=== PATIENT | male | born 1960 | race Caucasian/White ===

== ENCOUNTER 2017-04-29 18:09 | Emergency (ER) | payer MEDICAID ==
[~2017-04-29] VITALS: Ht 167.6 cm; Wt 81.6 kg
[2017-04-29 18:32] VITALS: BP_SYST 145
--- NOTE | 2017-04-29 18:40 | NUR ---
Patient to ER bed 2 to gown for evaluation. Side rails up. Report given to Sarthak ROTHMAN.
--- NOTE | 2017-04-29 18:43 | NUR ---
ER Dr. Jarvis at bedside examining patient.
--- NOTE | 2017-04-29 18:45 | NUR ---
Pt presents to ER c/o epigastric pain 12/31 that began this morning. Pt states that he had 4 vomiting episodes today and remains nauseous, last BM yesterday. Pt denies any significant medical history. Pt is AOX4, respirations even and unlabored, NKDA.
--- NOTE | 2017-04-29 18:48 | NUR ---
Laboratory at bedside for blood draw.
[2017-04-29 19:01] LABS: BASOPHILS # (AUTO) 0.1 K/uL (0.0-0.2); EOSINOPHILS % (AUTO) 0.1 % (0.0-4.0); HEMATOCRIT 48.2 % (36-54); HEMOGLOBIN 15.7 g/dL (14.0-18.0); LYMPHOCYTES # (AUTO) 0.8 K/uL (1.0-5.5); LYMPHOCYTES % (AUTO) 7.7 % (20.5-51.5); MEAN CORPUSCULAR HEMOGLOBIN 28 pg (27-31); MEAN CORPUSCULAR HGB CONC 33 % (32-36); MEAN CORPUSCULAR VOLUME 85 fL (79.0-98.0); MONOCYTES # (AUTO) 0.3 K/uL (0.0-1.0); MONOCYTES % (AUTO) 3.1 % (1.7-9.3); NEUTROPHILS # (AUTO) 9.4 K/uL (1.8-7.7); NEUTROPHILS % (AUTO) 88.1 % (40.0-70.0); PLATELET COUNT (AUTO) 201 K/uL (130-430); RED BLOOD CELL COUNT(AUTO) 5.68 MIL/uL (4.2-6.2); RED CELL DISTRIBUTION WIDTH 12.5 % (9.0-15.0); WHITE BLOOD COUNT (AUTO) 10.6 K/uL (4.8-10.8)
--- NOTE | 2017-04-29 19:06 | NUR ---
Radiology at bedside for ultrasound.
[2017-04-29 19:11] LABS: CALCIUM 9.9 mg/dL (8.4-11.0); CREATININE 1.67 mg/dL (0.55-1.30); POTASSIUM 4.6 mmol/L (3.5-5.1)
[2017-04-29 19:14] LABS: PROTHROMBIN TIME 10.4 SECS (9.5-12.5)
[2017-04-29 19:17] LABS: ALBUMIN 3.7 g/dL (3.4-4.8); TOTAL BILIRUBIN 0.7 mg/dL (0.0-1.0)
[2017-04-29] MEDS ORDERED: ONDANSETRON 4 MG ODT TAB PO ONE (19:45)
[2017-04-29] MEDS ORDERED: MAG HYDROX/AL HYDROX/SIMETH 30 ML, BELLADONNA ALKALOIDS/PHENOBARB 10 ML, LIDOCAINE VISC... PO ONE ×3 (19:45)
[2017-04-29 19:54] VITALS: BP_SYST 137
--- NOTE | 2017-04-29 19:54 | NUR ---
Patient given written and verbal discharge instructions and verbalizes understanding. ER MD Jarvis discussed with patient the results and treatment provided. Patient in stable condition. ID arm band removed. Rx of Zofran, Prilosec, [place] given. Patient educated on pain management and to follow up with PMD. Pain Scale 0. Opportunity for questions provided and answered.
== END 2017-04-29 19:54 | disposition home or self-care (01) ==
LOC: SED 18:09
DX: R10.13 Epigastric pain (principal)
CPT/HCPCS: 36415; 76700; 80053; 82150; 83690; 85025; 85610; 85730; 93005; 99285; J2001; Q0162

== ENCOUNTER 2021-07-17 07:38 | Day surgery (SDC) | payer MEDICAID ==
[~2021-07-17] VITALS: Ht 167.6 cm; Wt 54.4 kg
[2021-07-17] MEDS ORDERED: MEPERIDINE 100 MG INJ. 100 MG/ML VIAL ONE (08:52)
[2021-07-17] MEDS ORDERED: MIDAZOLAM HCL 5 MG/5 ML VIAL ONE (08:52)
[2021-07-17 12:00] VITALS: BP_SYST 125
== END 2021-07-17 10:30 | disposition home or self-care (01) ==
LOC: SMU 07:38 → SDS 07:38
PROVIDERS: ATTEND Internal Medicine Gastroenterology
DX: R10.13 Epigastric pain (principal); K29.50 Unspecified chronic gastritis without bleeding; R11.10 Vomiting, unspecified; Z79.899 Other long term (current) drug therapy; Z20.822 Contact with and (suspected) exposure to COVID-19
CPT/HCPCS: 36415; 43239; 43249; 87426; 88305; 88312; 88313; 99152; G0378; J2175; J2250

== ENCOUNTER 2021-09-23 12:44 | Inpatient (IN) | payer MEDICAID ==
[~2021-09-23] VITALS: Ht 167.6 cm; Wt 63.5 kg
--- NOTE | 2021-09-23 13:00 | NUR ---
ERMD AT BEDSIDE
[2021-09-23 13:03] VITALS: BP_SYST 136
[2021-09-23] MEDS ORDERED: NACL 0.9% 1,000 ML IV ONE (13:15)
[2021-09-23] MEDS ORDERED: dilTIAZem HCL IVP 5 MG/ML VIAL IVP ONE ×2 (13:15→13:45)
[2021-09-23] MEDS ORDERED: methylPREDNISolone SOD SUCC/PF 62.5 MG/ML VIAL IVP ONE (13:15)
[2021-09-23] MEDS ORDERED: EPINEPHrine HCL 1 MG/ML VIAL IM ONE (13:15)
[2021-09-23 13:32] LABS: BASOPHILS % (AUTO) 0.2 % (0.0-2.0); EOSINOPHILS % (AUTO) 0.3 % (0.0-4.0); HEMATOCRIT 50.1 % (36-54); HEMOGLOBIN 16.5 g/dL (14.0-18.0); LYMPHOCYTES # (AUTO) 1.5 K/uL (1.0-5.5); LYMPHOCYTES % (AUTO) 11.9 % (20.5-51.5); MEAN CORPUSCULAR HEMOGLOBIN 29 pg (27-31); MEAN CORPUSCULAR HGB CONC 33 % (32-36); MEAN CORPUSCULAR VOLUME 89 fL (79.0-98.0); MONOCYTES # (AUTO) 0.7 K/uL (0.0-1.0); MONOCYTES % (AUTO) 5.3 % (1.7-9.3); NEUTROPHILS # (AUTO) 10.7 K/uL (1.8-7.7); NEUTROPHILS % (AUTO) 82.3 % (40.0-70.0); PLATELET COUNT (AUTO) 224 K/uL (130-430); RED BLOOD CELL COUNT(AUTO) 5.65 MIL/uL (4.2-6.2); RED CELL DISTRIBUTION WIDTH 13.5 % (9.0-15.0)
[2021-09-23 13:46] LABS: ANION GAP 11 (5-15); CALCIUM 7.4 mg/dL (8.4-11.0); CHLORIDE 105 mmol/L (98-107); CREATININE 1.72 mg/dL (0.55-1.30); GLUCOSE 201 mg/dL (70-99); POTASSIUM 3.8 mmol/L (3.5-5.1); SODIUM SERUM 140 mmol/L (136-145); UREA NITROGEN, BLOOD 22 mg/dL (8-21)
[2021-09-23 13:47] LABS: GFR AFRICAN AMERICAN 53 mL/min (>90)
[2021-09-23 13:52] LABS: ALANINE AMINOTRANSFERASE 15 U/L (12-78); ALBUMIN 3.2 g/dL (3.4-4.8); ASPARTATE AMINOTRANSFERASE 22 U/L (10-37); TOTAL BILIRUBIN 0.6 mg/dL (0.0-1.0)
[2021-09-23] MEDS ORDERED: LORazepam 2 MG/ML VIAL IVP ONE (14:30)
[2021-09-23] MEDS ORDERED: PRED20TA PO (15:09)
[2021-09-23] MEDS ORDERED: FAMO40TA71 PO (15:09)
[2021-09-23] MEDS ORDERED: DIPH25CA83 PO (15:09)
[2021-09-23] MEDS ORDERED: DOCUSATE SODIUM 100 MG/10 ML UDC PO PRN (15:15)
[2021-09-23] MEDS ORDERED: guaiFENesin/DEXTROMETHORPHAN 10 ML UDC PO PRN (15:15)
[2021-09-23] MEDS ORDERED: NACL 0.9% 1,000 ML IV SCH (15:15)
[2021-09-23] MEDS ORDERED: HYDROcodone/ACETAMIN 7.5-325 MG TAB PO PRN (15:15)
[2021-09-23] MEDS ORDERED: ONDANSETRON HCL 4 MG/2 ML VIAL IVP PRN (15:15)
[2021-09-23] MEDS ORDERED: ZOLPIDEM TARTRATE 5 MG TABLET PO PRN (15:15)
[2021-09-23] MEDS ORDERED: MORPHINE 2 MG/ML INJ. SYRINGE IVP PRN (15:15)
[2021-09-23] MEDS ORDERED: FAMOTIDINE 20 MG TABLET PO ONE (15:15)
[2021-09-23] MEDS ORDERED: ACETAMINOPHEN 500 MG TABLET PO PRN (15:15)
--- NOTE | 2021-09-23 15:22 | NUR ---
A/OX4 VSS 101/70 HR 99, RR 20, 100% VERBALIZED UNDERSTANDING OF DC INSTRUCTIONS, ALL QUESTIONS ANSWERED
--- NOTE | 2021-09-23 15:23 | NUR ---
Patient given written and verbal discharge instructions and verbalizes understanding. ER MD discussed with patient the results and treatment provided. Patient in stable condition. ID arm band removed. IV catheter removed intact and dressing applied, no active bleeding. Rx of [] given. Patient educated on pain management and to follow up with PMD. Pain Scale []. Opportunity for questions provided and answered. Medication side effect fact sheet provided. Patient does not wish to proceed with medical care recommended by . Patient given information related to possible complications, up to and including , which could occur as a result of leaving hospital at this time. Patient verbalizes understanding of risks involved leaving against medical advice. Patient has signed AMA form.
[2021-09-23 15:24] LABS: INR 1.4 (0.80-1.20); PROTHROMBIN TIME 13.6 SECS (9.5-12.5)
[2021-09-23] MEDS ORDERED: cefTRIAXone 1 GM in D5W 50 ML IV SCH (16:00)
[2021-09-23 16:16] LABS: FREE T4 (FREE THYROXINE) 0.9 ng/dl (0.8-1.5); PHOSPHORUS 3.9 mg/dL (2.7-4.5); THYROID STIMULATING HORMONE 2.5 uIu/mL (0.36-3.74)
[2021-09-24] MEDS ORDERED: POTASSIUM CHLORIDE 20 MEQ TAB.PRT.SR PO PRN (09:00)
[2021-09-24] MEDS ORDERED: PANTOPRAZOLE SODIUM 40 MG TAB PO SCH (09:00)
== END 2021-09-23 15:23 | disposition left against medical advice (07) | DRG 201 ==
LOC: SED 12:44 → STU 15:02
PROVIDERS: ADMIT Family Medicine; ATTEND Family Medicine
DX: I48.91 Unspecified atrial fibrillation (principal); Z53.29 Procedure and treatment not carried out because of patient's decision for other reasons; Z79.01 Long term (current) use of anticoagulants
CPT/HCPCS: 36415; 71045; 80053; 80061; 82150; 83036; 83690; 83735; 83880; 84100; 84439; 84443; 84484; 85025; 85610-TC; 85730-TC; 93005; 96372; 96374; 96375; 99285; G0378; G0482; J0171; J0696; J2930; J3490; J7030; J7060

== ENCOUNTER 2022-08-29 08:22 | Day surgery (SDC) | payer MEDICAID ==
[~2022-08-29] VITALS: Ht 167.6 cm; Wt 52.4 kg
[~2022-08-29 08:22] MED LIST: DIPH25CA83 PO; FAMO40TA71 PO; PRED20TA PO
[2022-08-29] MEDS ORDERED: fentaNYL CITRATE/PF 100 MCG/2 ML AMP ONE (10:13)
[2022-08-29] MEDS ORDERED: MIDAZOLAM HCL 5 MG/5 ML VIAL ONE ×2 (10:14→10:35)
[2022-08-29] MEDS ORDERED: DIPHENHYDRAMINE INJ 50 MG/ML VIAL ONE (10:28)
[2022-08-29 14:44] VITALS: BP_SYST 137
== END 2022-08-29 11:55 | disposition home or self-care (01) ==
LOC: SMU 08:22 → SDS 08:22
PROVIDERS: ATTEND Internal Medicine Gastroenterology
DX: R13.12 Dysphagia, oropharyngeal phase (principal); K22.0 Achalasia of cardia; K29.70 Gastritis, unspecified, without bleeding; T18.128A Food in esophagus causing other injury, initial encounter; X58.XXXA Exposure to other specified factors, initial encounter; Y93.89 Activity, other specified; Y92.89 Other specified places as the place of occurrence of the external cause; Y99.8 Other external cause status
CPT/HCPCS: 43249; 43247; 99152; 99153; G0378; J1200; J2250; J3010; C1769